=== PATIENT | female | born 1985 | race Asian ===

== ENCOUNTER 2017-12-17 12:12 | Emergency (ER) | payer BC | END 2017-12-17 14:53 | disposition home or self-care (01) | LOC: ERS 12:12 | DX: S09.90XA Unspecified injury of head, initial encounter (principal); Y04.8XXA Assault by other bodily force, initial encounter | CPT/HCPCS: 99283 ==

== ENCOUNTER 2017-12-26 08:05 | Outpatient (CLI) | payer BC ==
--- NOTE | 2017-12-26 09:52 | CT ---
CT OF HEAD NONCONTRAST: Indication: Post-traumatic injury. Fall with dizziness, headache, and nausea. FINDINGS: There is no ventriculomegaly, mass effect, or midline shift. No intracranial hemorrhage. The calvariu m is intact. There is mild opacification of the inferior left mastoid air cells and scattered paranas al sinus mucosal thickening. IMPRESSION: No acute intracranial hemorrhage or mass effect. POS: [facility]
== END 2017-12-26 08:06 | disposition home or self-care (01) ==
LOC: BICCT 08:05
PROVIDERS: ATTEND Physician Assistant
DX: S09.90XD Unspecified injury of head, subsequent encounter (principal)
CPT/HCPCS: 70450

== ENCOUNTER 2024-04-01 18:41 | Emergency (ER) | payer BC ==
[2024-04-01] MEDS ORDERED: Acetaminophen 500 MG TAB ONE (19:22)
[2024-04-01] MEDS ORDERED: Orphenadrine Citrate 100 MG ER.TAB ONE (20:00)
== END 2024-04-01 20:51 | disposition home or self-care (01) ==
LOC: ERS 18:41
DX: M79.651 Pain in right thigh (principal); R10.2 Pelvic and perineal pain; V89.2XXA Person injured in unspecified motor-vehicle accident, traffic, initial encounter; Y93.89 Activity, other specified
CPT/HCPCS: 72170; 99285